=== PATIENT | male | born 1980 | race Caucasian/White ===

== ENCOUNTER → 2020-09-23 08:00 | Outpatient (CLI) | payer OTHER | END | disposition home or self-care (01) | LOC: PPH VACUNA 08:00 → EDBD 08:00 | DX: Z23 Encounter for immunization (principal) ==

== ENCOUNTER 2024-02-29 16:55 | Emergency (ER) | payer OTHER ==
[~2024-02-29] VITALS: Ht 182.9 cm; Wt 87.1 kg
[2024-02-29] MEDS ORDERED: CEFTRIAXONE SODIUM 1,000 MG VIAL IM ONE (17:30)
[2024-02-29] MEDS ORDERED: LIDOCAINE HCL 1% 10ML VIAL PERCUT ONE (17:30)
[2024-02-29] MEDS ORDERED: TETANUS & DIPHTHERIA TOX,ADULT 0.5 ML VIAL IM ONE (17:30)
[2024-02-29] MEDS ORDERED: KETOROLAC TROMETHAMINE 60 MG VIAL IM ONE ×2 (17:30→17:35)
[2024-02-29] MEDS ORDERED: LIDOCAINE HCL 1% 10ML VIAL ONE (17:32)
[2024-02-29] MEDS ORDERED: POVIDONE-IODINE 118 ML BOTT TOP ONE (17:35)
[2024-02-29] MEDS ORDERED: CEFTRIAXONE SODIUM 1,000 MG VIAL ONE (17:35)
[2024-02-29] MEDS ORDERED: TETANUS DIPHTHERIA TOX. ADSOR 5 ML VIAL IM ONE (17:36)
== END 2024-02-29 21:17 | disposition home or self-care (01) ==
LOC: ER 16:55
DX: S61.412A Laceration without foreign body of left hand, initial encounter (principal); W26.8XXA Contact with other sharp object(s), not elsewhere classified, initial encounter; Y93.89 Activity, other specified; Y92.89 Other specified places as the place of occurrence of the external cause; Y99.9 Unspecified external cause status